=== PATIENT | female | born 1980 | race Caucasian/White ===

== ENCOUNTER → 2022-06-16 | Outpatient (REF) | payer OTHER ==
[~2022-06-16] MED LIST: ALLO100T PO; AMIT25TA17 PO; BIOT1CAP2 PO; CLOB0.0548; FAMO20TA PO; GLIP5TAB20 PO; HYDR-3715 PO; IRON65TA PO; NEXI20CA PO; NITR50CA34 PO; OXYB10TA23 PO; PROV10TA PO; ZYLO300T6 PO; [UNRECOGNIZED DRUG - OTHER] PO; motrin PO
== END ==
LOC: M SFHCDERM 14:09
PROVIDERS: ATTEND Nurse Practitioner Family
DX: L90.0 Lichen sclerosus et atrophicus (principal); B49 Unspecified mycosis; L40.8 Other psoriasis